=== PATIENT | female | born 1985 | race American Indian/Alaskan Native ===

== ENCOUNTER 2018-04-16 22:19 | Outpatient (CLI) | payer MEDICAID ==
[2018-04-16] MEDS ORDERED: LACTATED RINGERS 500 ML IV ONE (22:36)
[2018-04-16 23:45] LABS: Bilirubin,Urine NEG (Negative); Blood,Urine NEG (Negative); Color,Urine Straw (Yellow); Protein,Urine <15 mg/dL mg/dL (Negative); RBC,Urine < 1.0 /HPF (0.0-6.0); Urobilinogen,Urine < 2.0 mg/dL (<2.0); WBC,Urine < 1.0 /HPF (0.0-6.0)
[2018-04-17 00:09] VITALS: BP 108/69
== END 2018-04-17 00:21 | disposition home or self-care (01) ==
LOC: TRG 22:19
PROVIDERS: ATTEND Obstetrics & Gynecology
DX: O26.893 Other specified pregnancy related conditions, third trimester (principal); R10.30 Lower abdominal pain, unspecified; R07.9 Chest pain, unspecified; Z3A.35 35 weeks gestation of pregnancy
CPT/HCPCS: 59025; 81001; 93005; 93010

== ENCOUNTER 2018-05-09 05:44 | Inpatient (IN) | payer MEDICAID ==
[2018-05-09] MEDS ORDERED: REGLAN IV ONE (06:24)
[2018-05-09] MEDS ORDERED: PEPCID IV ONE (06:24)
[2018-05-09] MEDS ORDERED: BICITRA PO ONE (06:24)
[2018-05-09 07:00] LABS: Hematocrit 29.2 % (30.3-42.9); Hemoglobin 9.2 gm/dl (10.1-14.3); Mean Corpuscular HGB Conc 31 % (30-34); Red Blood Count 4.47 M/mm3 (3.65-5.03)
[2018-05-09] MEDS ORDERED: ANCEF/STERILE WATER 2 GM/20 ML 2 GM/20 ML SYRINGE IV NR (07:00)
[2018-05-09] MEDS ORDERED: PITOCin/NS 20 UNIT/1000ML DRIP 20 UNITS/1,000 ML BAG IV SCH ×2 (07:00→11:00)
[2018-05-09] MEDS ORDERED: LACTATED RINGERS 1,000 ML IV SCH (07:00)
[2018-05-09 07:02] LABS: Mean Corpuscular Volume 65 fl (79-97); Platelet Count 223 K/mm3 (140-440); Red Cell Distribution Width 21.7 % (13.2-15.2)
--- NOTE | 2018-05-09 07:10 | Anesthesia Day of Surgery ---
Anesthesia Day of Surgery - Day of Surgery Patient Examined: Yes Patient H&P Reviewed: Yes Patient is NPO: Yes Beta Blockers: No
--- NOTE | 2018-05-09 07:10 | Anesthesia Consultation ---
Anesthesia Consult and Med Hx Date of service: 05/09/18 - Airway Anesthetic Teeth Evaluation: Good ROM Head & Neck: Adequate Mental/Hyoid Distance: Adequate Mallampati Class: Class II Intubation Access Assessment: Probably Good - Pulmonary Exam CTA: Yes - Cardiac Exam Cardiac Exam: RRR - Pre-Operative Health Status ASA Pre-Surgery Classification: ASA2 Proposed Anesthetic Plan: Spinal - Pulmonary Hx Smoking: No Hx Asthma: No - Cardiovascular System Hx Hypertension: No Hx Coronary Artery Disease: No - Central Nervous System Hx Seizures: No Hx Psychiatric Problems: Yes (anxiety) - Endocrine Hx Renal Disease: No Hx Hypothyroidism: No Hx Hyperthyroidism: No - Hematic Hx Anemia: Yes (Iron) Hx Sickle Cell Disease: No - Other Systems Hx Alcohol Use: No
[2018-05-09] MEDS ORDERED: PHENERGAN PR PRN (07:30)
[2018-05-09] MEDS ORDERED: NARCAN 0.4 MG/1 ML IV PRN ×2 (07:30→12:00)
[2018-05-09] MEDS ORDERED: SENSORCAINE/DEXTR 0.75-8.25% INFILTRATI ONE (07:38)
[2018-05-09] MEDS ORDERED: SUBLIMAZE ONE (07:38)
[2018-05-09] MEDS ORDERED: ZOFRAN IV PRN (08:00)
[2018-05-09] MEDS ORDERED: SODIUM CHLORIDE FLUSH SYRINGE 10 ML IV PRN ×2 (08:00→12:00)
[2018-05-09] MEDS ORDERED: PHENERGAN PO PRN (08:00)
[2018-05-09 08:36] LABS: Basophils % (Manual) 0 % (0.0-1.8); Myelocytes # (Manual) 0.2 K/mm3; Total Cells Counted 100
[2018-05-09 08:37] LABS: Anisocytosis 1+; Ovalocytes 1+; Platelet Estimate Consistent w Auto; Poikilocytosis 1+; Tear Drop Cells Few
--- NOTE | 2018-05-09 08:38 | History and Physical Report ---
History of Present Illness Date of examination: 05/09/18 Date of admission: 05/09/18 05:44 Chief complaint: Repeat C Section with BTL History of present illness: Pt is a 32yo BF EDC 05/16/18; EGA 39 0/7 weeks presents for Repeat C Section with BTL.. She received care at [facility] since 14 weeks and course was unremarkable except for previous C Section x 2. records are available and GBS is Negative. Past History Past Medical History: no pertinent history Past Surgical History: section (x2) Social history: no significant social history, - Obstetrical History Expected Date of Delivery: 05/16/18 Actual Gestation: 39 Week(s) 0 Day(s) : 3 Medications and Allergies Allergies Allergy/AdvReac Type Severity Reaction Status Date / Time No Known Allergies Allergy Verified 05/09/18 06:26 Home Medications Medication Instructions Recorded Confirmed Last Taken Type Ferrous Sulfate [Iron] 1 tab PO DAILY 03/15/18 04/16/18 04/16/18 History Active Meds: Active Medications Cefazolin Sodium (Ancef/Sterile Water 2 Gm/20 Ml) 2 gm in 20 mls @ 80 mls/hr IV PREOP NR; Protocol Stop: 05/09/18 18:00 Lactated Ringer's (Lactated Ringers) 1,000 mls @ 2,250 mls/hr IV PREOP ANA MARIA Stop: 05/10/18 07:27 Last Admin: 05/09/18 06:28 Dose: 2,250 mls/hr Documented by: Oxytocin/Sodium Chloride (Pitocin/Ns 20 Unit/1000ml Drip) 20 units in 1,000 mls @ 0 mls/hr IV TITR ANA MARIA Naloxone HCl (Narcan 0.4 Mg/1 Ml) 0.2 mg IV Q2MIN PRN PRN Reason: Res Rate </= 8 or 02 SAT < 92% Ondansetron HCl (Zofran) 4 mg IV Q8H PRN PRN Reason: Nausea And Vomiting Promethazine HCl (Phenergan) 25 mg PO Q6H PRN PRN Reason: Nausea And Vomiting Promethazine HCl (Phenergan) 25 mg WV Q6H PRN PRN Reason: Nausea And Vomiting Sodium Chloride (Sodium Chloride Flush Syringe 10 Ml) 10 ml IV PRN PRN PRN Reason: flush Review of Systems All systems: negative - Vital Signs Vital signs: Vital Signs Temp Pulse Resp BP 98.5 F 95 H 16 124/63 05/09/18 07:30 05/09/18 07:30 05/09/18 07:30 05/09/18 07:30 Temp Pulse Resp BP Pulse Ox 98.5 F 95 H 16 124/63 05/09/18 07:30 05/09/18 07:32 05/09/18 07:30 05/09/18 07:32 - Physical Exam Breasts: Positive: deferred Cardiovascular: Regular rate Lungs: Positive: Clear to auscultation Abdomen: Positive: normal appearance Genitourinary (Female): Positive: normal external genitalia Uterus: Positive: enlarged Extremities: Positive: normal - Obstetrical FHR: category 1 Uterine Contraction Monitor Mode: External Uterine Contraction Pattern: Absent Results Result Diagrams: 05/09/18 06:46 Abnormal lab results 05/09/18 Range/Units 06:46 Hgb 9.2 L (10.1-14.3) gm/dl Hct 29.2 L (30.3-42.9) % MCV 65 L (79-97) fl MCH 21 L (28-32) pg RDW 21.7 H (13.2-15.2) % All other labs normal. Assessment and Plan - Patient Problems (1) 39 weeks gestation of Onset Date: 05/09/18 Current Visit: Yes Status: Acute Plan to address problem: A: IUP @ 39 0/7 weeks Previous C Section x 2 Desires permanent sterilization P: Admit to L&D for a Repeat C Section with BTL (2) Previous section Onset Date: 05/09/18 Current Visit: Yes Status: Acute
[2018-05-09] MEDS ORDERED: NACL 0.9% IR ONE (09:05)
[2018-05-09] MEDS ORDERED: WATER FOR IRRIG STERILE IR ONE (09:05)
[2018-05-09] MEDS ORDERED: NACL 0.9% 1000 ML 1,000 ML ONE (09:40)
[2018-05-09] MEDS ORDERED: XYLOCAINE MPF 2% ONE (09:40)
[2018-05-09] MEDS ORDERED: NEO SYNEPHRINE/NS Syringe(OR USE) IV ONE (09:40)
--- NOTE | 2018-05-09 10:18 | Operative Report ---
Operative Report Operative Report: Date of procedure: 05/09/2018 Pre-operative diagnosis: 1. Intrauterine at 39 0/7 weeks 2. Previ ous 2 3. Desires permanent sterilization Post-operative diagnosis: Same with extensive lower uterine segment adhesions Procedure name(s): 1. Repeat low transverse section 2. Bilateral tubal ligation Surgeon: Liban Garcia MD Slope Tender: None Anesthesia: Spinal anesthesia by the [place] EBL: 750 mls Findings: A 3617 g male infant Apgars 8 at 1 minute 9 at 5 minutes. Clear amniotic fluid. Normal uterus with extensive lower uterine segment adhesions. Normal tubes and ovaries bilaterally. Procedure: After the patient was prepped and draped in usual sterile fashion, and after satisfactory level of epidural anesthesia was obtained, the skin knife was used to make a transverse skin incision through the previous skin scar. The incision was excised down to layer of the fascia, which was nicked in the midline and extended laterally using the Bovie cautery. The rectus muscles were dissected off the rectus fascia both superiorly and inferiorly. The rectus be llies in the midline, and the peritoneum was entered under direct visualization. The peritoneal incision was extended superiorly and inferiorly. There were extensive lower uterine segment adhesions which were taken down using both sharp and blunt dissection. A bladder flap was created and the bladder blade was then placed. The uterus was scored in a curvilinear linear fashion, entered in the midline revealing clear amniotic fluid. The infant's head was delivered onto the surgical field with the aid of a vacuum, and the oropharynx and nasopharynx were bulb suctioned. The rest of the infant's body was delivered, cord was doubly clamped and cut and the was handed to the waiting respiratory team. Cord blood was then obtained. The placenta was manually removed from the uterus, and the uterus removed from its normal anatomical position. After gentle uterine lavage, the incision was inspected and found to be without extensions. It was then closed in 2 layers using 0 Vicryl suture in a running interlocking fashion, the second layer imbricating the first. After good hemostasis was achieved, copious amounts or irrigation was performed, and the gutters were suctioned free of blood and blood clots. Attention was then turned to the tubal ligation. First the right fallopian tube was grasped using [place], and the [place]ie clip was applied to the proximal portion of the tube. Next the left fallopian tube was grasped using a [place], and a [place] clip was applied to the proximal portion of the tube. The Tisseel sealant was sprayed across the uterine incision. The uterus was then returned to its normal anatomical position, and after excellent hemostasis assured, the peritoneum was re-approximated using 3-0 Vicryl suture in a running interlocking fashion, and then the rectus muscles were re-approximated using 3-0 Vicryl suture in a [id number] configuration. The fascia was then re-approximated using 0 Vicryl suture in running interlocking fashion. The subcutaneous layer was made hemostatic using Bovie cautery, the Tisseel sealant was sprayed across the fascial incision and the skin edges re-approximated using 4-0 Vicryl suture in a sub-cuticular fashion. Patient tolerated the procedure well was transported to recovery in stable condition.
[2018-05-09] MEDS ORDERED: TUCKS PAD TP PRN (12:00)
[2018-05-09] MEDS ORDERED: TYLENOL PO PRN (12:00)
[2018-05-09] MEDS ORDERED: D5LR 1,000 ML IV SCH (12:00)
[2018-05-09] MEDS ORDERED: TORADOL IV PRN (12:00)
[2018-05-09] MEDS ORDERED: MYLICON PO PRN (12:00)
[2018-05-09] MEDS ORDERED: LANSINOH TP PRN (12:00)
[2018-05-09] MEDS: METHERGINE PO SCH ×2 (12:40→19:50)
[2018-05-09] MEDS: DILAUDID IV PRN ×2 (15:15→15:20)
[2018-05-09] MEDS: PERCOCET 5/325 PO PRN (17:10)
[2018-05-09] MEDS: ANCEF/NS 1 GM/50 ML 1 GM/50 ML BAG IV SCH (17:14)
--- NOTE | 2018-05-09 20:04 | Post Anesthesia Evaluation ---
- Post Anesthesia Evaluation Patient Participated: Yes Airway Patent: Yes Stable Respiratory Function: Yes Nausea/Vomiting: No Temp > 96.8F: Yes Pain Manageable: Yes Adequeate Hydration: Yes Anesthesia Complications: No Block Receding Appropriately: Yes Patient on Ventilator: No
[2018-05-09] MEDS ORDERED: MILK OF MAGNESIA PO PRN (22:00)
[2018-05-09] MEDS ORDERED: SENOKOT PO PRN (22:00)
[2018-05-10] MEDS: IBUPROFEN PO PRN ×3 (00:15→17:25)
[2018-05-10] MEDS: NORCO 5/325 PO PRN ×2 (00:16→18:10)
[2018-05-10] MEDS: ANCEF/NS 1 GM/50 ML 1 GM/50 ML BAG IV SCH (00:17)
[2018-05-10 00:58] LABS: Hematocrit 21.8 % (30.3-42.9); Hemoglobin 6.8 gm/dl (10.1-14.3)
[2018-05-10] MEDS: PERCOCET 5/325 PO PRN ×2 (04:37→10:25)
[2018-05-10] MEDS: METHERGINE PO SCH ×3 (04:37→18:09)
[2018-05-10] MEDS ORDERED: BOOSTRIX IM ONE (06:00)
--- NOTE | 2018-05-10 08:58 | Progress Note ---
Assessment and Plan - Patient Problems (1) 39 weeks gestation of Onset Date: 05/09/18 Current Visit: Yes Status: Resolved (2) Previous section Onset Date: 05/09/18 Current Visit: Yes Status: Resolved (3) Status post section Onset Date: 05/10/18 Current Visit: Yes Status: Resolved Plan to address problem: A: S/P Repeat C Section with BTL - POD #1 Doing well Acute blood loss anemia - stable Asymptomatic anemia - stable P: Continue RPOC Anticipate discharge in 24-48hrs Repeat H/H today. (4) Acute blood loss anemia Onset Date: 05/10/18 Current Visit: Yes Status: Resolved Subjective - Subjective Date of service: 05/10/18 Principal diagnosis: s/p C Section with BTL - POD #1 Interval history: Pt is a 32yo BF EDC 05/16/18; EGA 39 0/7 weeks presents for Repeat C Section with BTL.. She received care at [facility] since 14 weeks and course was unremarkable except for previous C Section x 2. records are available and GBS is Negative. Patient reports: appetite normal, voiding normally, pain well controlled, ambulating normally, no flatus, no nauseated : doing well, nursing well Objective - Vital Signs Latest vital signs: Vital Signs Temp Pulse Resp BP BP Pulse Ox 05/10/18 01:00 98.0 F 99 H 18 109/63 05/09/18 20:00 98.2 F 101 H 18 113/76 05/09/18 17:33 98.4 F 95 H 18 116/73 98 05/09/18 11:45 99.6 F 117 H 23 119/75 99 05/09/18 11:20 71 117/66 05/09/18 11:15 98.4 F 87 20 129/93 100 05/09/18 11:03 75 113/62 05/09/18 11:00 79 25 H 133/88 100 05/09/18 10:49 66 105/57 05/09/18 10:45 93 H 20 118/73 100 05/09/18 10:33 74 124/59 05/09/18 10:30 81 25 H 115/78 100 05/09/18 10:25 86 20 112/71 100 05/09/18 10:19 97.7 F 94 H 20 117/59 100 05/09/18 10:03 58 L 113/66 05/09/18 09:49 54 L 121/73 05/09/18 09:33 60 107/68 05/09/18 09:14 38 L 108/59 Intake and Output 05/09/18 05/10/18 05/10/18 22:59 06:59 14:59 Intake Total 50 Output Total 1100 1250 Balance -1050 -1250 Intake: IV 50 ANCEF/NS 1 GM/50 ML 1 gm 50 In 50 ml @ 100 mls/hr IV Q8H [facility] Rx#:[id number] Output: Urine 1100 1250 Indwelling Catheter 600 Void 500 1250 Other: Total, Output Amount 500 350 - Exam Breasts: Present: deferred Abdomen: Present: normal appearance, soft Uterus: Present: normal, firm, fundal height below umbilicus Extremities: Present: normal Incision: Present: normal, dry, intact, dressed - Labs Labs: Abnormal lab results 05/09/18 Range/Units 22:29 Hgb 6.8 L (10.1-14.3) gm/dl Hct 21.8 L D (30.3-42.9) % Laboratory Tests 05/09/18 05/09/18 05/09/18 06:46 06:46 22:29 WBC 5.9 RBC 4.47 Hgb 9.2 L 6.8 L Hct 29.2 L 21.8 L D MCV 65 L MCH 21 L MCHC 31 RDW 21.7 H Plt Count 223 Add Manual Diff Complete Total Counted 100 Seg Neuts % (Manual) 59.0 Band Neutrophils % 0 Lymphocytes % (Manual) 30.0 Reactive Lymphs % (Man) 0 Monocytes % (Manual) 6.0 Eosinophils % (Manual) 2.0 Basophils % (Manual) 0 Metamyelocytes % 0 Myelocytes % 3.0 Promyelocytes % 0 Blast Cells % 0 Nucleated RBC % Not Reportable Seg Neutrophils # Man 3.5 Band Neutrophils # 0.0 Lymphocytes # (Manual) 1.8 Abs React Lymphs (Man) 0.0 Monocytes # (Manual) 0.4 Eosinophils # (Manual) 0.1 Basophils # (Manual) 0.0 Metamyelocytes # 0.0 Myelocytes # 0.2 Promyelocytes # 0.0 Blast Cells # 0.0 WBC Morphology Not Reportable Hypersegmented Neuts Not Reportable Hyposegmented Neuts Not Reportable Hypogranular Neuts Not Reportable Smudge Cells Not Reportable Toxic Granulation Not Reportable Toxic Vacuolation Not Reportable Dohle Bodies Not Reportable Pelger-Huet Anomaly Not Reportable Erik Rods Not Reportable Platelet Estimate Consistent w auto Clumped Platelets Not Reportable Plt Clumps, EDTA Not Reportable Large Platelets Not Reportable Giant Platelets Not Reportable Platelet Satelliting Not Reportable Plt Morphology Comment Not Reportable RBC Morphology Not Reportable Dimorphic RBCs Not Reportable Polychromasia Not Reportable Hypochromasia Not Reportable Poikilocytosis 1+ Anisocytosis 1+ Microcytosis Not Reportable Macrocytosis Not Reportable Spherocytes Not Reportable Pappenheimer Bodies Not Reportable Sickle Cells Not Reportable Target Cells Not Reportable Tear Drop Cells Few Ovalocytes 1+ Helmet Cells Not Reportable Plasencia-[place] Bodies Not Reportable Rosenberg Rings Not Reportable Trey Cells Not Reportable Bite Cells Not Reportable Crenated Cell Not Reportable Elliptocytes Few Acanthocytes (Spur) Not Reportable Rouleaux Not Reportable Hemoglobin C Crystals Not Reportable Schistocytes Not Reportable Malaria parasites Not Reportable Ja Bodies Not Reportable Hem Pathologist Commnt No Blood Type O POSITIVE Antibody Screen Negative
[2018-05-10] MEDS: PRENATAL VITAMIN PO SCH (09:27)
[2018-05-10] MEDS: FEOSOL PO SCH (09:27)
[2018-05-10 10:37] LABS: Hemoglobin 6.3 gm/dl (10.1-14.3)
[2018-05-10] MEDS ORDERED: M-M-R II VACCINE SUB-Q ONE (11:00)
[2018-05-10] MEDS: CLARITIN PO SCH (21:30)
[2018-05-11] MEDS ORDERED: METHERGINE PO SCH (02:00)
[2018-05-11] MEDS: IBUPROFEN PO PRN ×2 (05:40→11:20)
--- NOTE | 2018-05-11 09:52 | Progress Note ---
Assessment and Plan - Patient Problems (1) 39 weeks gestation of Onset Date: 05/09/18 Current Visit: Yes Status: Resolved (2) Previous section Onset Date: 05/09/18 Current Visit: Yes Status: Resolved (3) Status post section Onset Date: 05/10/18 Current Visit: Yes Status: Resolved Plan to address problem: A: S/P Repeat C Section with BTL - POD #2 Doing well Acute blood loss anemia - stable Asymptomatic anemia - stable P: May go home today. (4) Acute blood loss anemia Onset Date: 05/10/18 Current Visit: Yes Status: Resolved Subjective - Subjective Date of service: 05/11/18 Principal diagnosis: s/p C Section with BTL - POD #2 Interval history: Pt is feeling well without complaints. She is tolerating a reg diet without nausea or vomiting, ambulating and voiding without difficulty. Patient reports: appetite normal, voiding normally, pain well controlled, flatus, ambulating normally, no dizzy ambulation, no nauseated [place]: doing well, bottle feeding Objective - Vital Signs Latest vital signs: Vital Signs Temp Pulse Resp BP BP Pulse Ox 05/11/18 05:40 20 05/11/18 00:30 99.0 F 109 H 20 106/64 05/10/18 17:08 98.6 F 107 H 18 108/71 99 05/10/18 16:15 98.3 F 100 H 20 120/78 98 Intake and Output 05/10/18 05/11/18 05/11/18 22:59 06:59 14:59 Intake Total 360 Balance 360 Intake: Oral 360 Other: Total, Intake Amount 360 # Voids Void 1 - Exam Abdomen: Present: normal appearance, soft Uterus: Present: normal, firm, fundal height below umbilicus Extremities: Present: normal Incision: Present: normal, dry, intact - Labs Labs: Abnormal lab results 05/10/18 Range/Units 10:06 Hgb 6.3 L (10.1-14.3) gm/dl Hct 20.0 L (30.3-42.9) %
[2018-05-11] MEDS: CLARITIN PO SCH (11:21)
[2018-05-11] MEDS: PRENATAL VITAMIN PO SCH (11:21)
[2018-05-11] MEDS: FEOSOL PO SCH (11:22)
--- NOTE | 2018-05-11 12:42 | Discharge Summary ---
Providers - Providers Date of Admission: 05/09/18 05:44 Date of discharge: 05/11/18 Attending physician: ROSLYN MOREJON Primary care physician: ROSLYN MOREJON Hospitalization Reason for admission: section, IUP at term Delivery: Procedure: section, bilateral tubal ligation, repeat low transverse Episiotomy: none Laceration: none Incision: normal, dry, intact Other procedures: tubal ligation complications: none Discharge diagnosis: IUP at term delivered [place] baby: male Hospital course: Pt is a 32yo BF EDC 05/16/18; EGA 39 0/7 weeks who presented for a Repeat C Section with BTL.. She underwent an uncomplicated Repeat C Section with BTL and tolerated the procedure well. By POD #2 she was tolerating a reg diet without nausea or vomiting, ambulating and voiding without difficulty. She will therefore be discharged to home today in stable condition. Condition at discharge: Good Disposition: DC-01 TO HOME OR SELFCARE - Discharge Diagnoses (1) 39 weeks gestation of Status: Resolved (2) Previous section Status: Resolved (3) Status post section Status: Resolved (4) Acute blood loss anemia Status: Resolved Plan - Discharge Medications Prescriptions: Ferrous Sulfate [Feosol 325 MG tab] 325 mg PO BID #60 tablet Ibuprofen [Motrin 800 MG tab] 800 mg PO Q6H PRN #30 tablet PRN Reason: Pain, Mild (1-3) HYDROcodone/APAP 5-325 [[place] 5-325 mg TAB] 1 each PO Q6HR PRN #30 tablet PRN Reason: Pain, Moderate (4-6) Vit-Fe Fumar-FA [ Vitamin] 1 each PO QDAY #30 tablet - Provider Discharge Summary Activity: routine, no sex for 6 weeks, no heavy lifting 4 weeks, no strenuous exercise Diet: routine Instructions: routine Additional instructions: [] Smoking cessation referral if applicable(refer to patient education folder for contact #) [] Refer to [facility] Booklet Call your doctor immediately for: * Fever > 100.5 * Heavy vaginal bleeding ( >1 pad per hour) * Severe persistent headache * Shortness of breath * Reddened, hot, painful area to leg or breast * Drainage or odor from incision. * Keep incision clean and dry at all times and follow doctor's instructions regarding bathing/showering - Follow up plan Follow up: ROSLYN MOREJON MD [Primary Care Provider] - 14 Days DIONICIO JIMÉNEZ NP [Referring] - 14 Days
[2018-05-11 17:25] VITALS: BP 111/70
== END 2018-05-11 18:00 | disposition home or self-care (01) | DRG 765 ==
LOC: APU 05:44 → OB 11:29
PROVIDERS: ADMIT Obstetrics & Gynecology; ATTEND Obstetrics & Gynecology
PROC: 10D00Z1 Extraction of Products of Conception, Low, Open Approach (ICD-10-PCS; principal; 2018-05-09)
PROC: 0UL70CZ Occlusion of Bilateral Fallopian Tubes with Extraluminal Device, Open Approach (ICD-10-PCS; 2018-05-09)
PROC: 0UN90ZZ Release Uterus, Open Approach (ICD-10-PCS; 2018-05-09)
PROC: 3E0234Z Introduction of Serum, Toxoid and Vaccine into Muscle, Percutaneous Approach (ICD-10-PCS; 2018-05-10)
DX: O34.211 Maternal care for low transverse scar from previous cesarean delivery (principal); D62 Acute posthemorrhagic anemia; O99.344 Other mental disorders complicating childbirth; F41.9 Anxiety disorder, unspecified; O99.02 Anemia complicating childbirth; O99.89 Other specified diseases and conditions complicating pregnancy, childbirth and the puerperium; N73.6 Female pelvic peritoneal adhesions (postinfective); Z3A.39 39 weeks gestation of pregnancy; Z37.0 Single live birth; Z23 Encounter for immunization
CPT/HCPCS: 36415; 85007; 85014; 85018; 85025; 86850; 86900; 86901; 90471; 90715; G0378; A6250; C9250; J0690; J1170; J1885; J2370; J2405; J2590; J2765; J3010; J7030; J7120; J7121

== ENCOUNTER 2018-08-02 08:00 | Emergency (ER) | payer MEDICAID, OTHER ==
[2018-08-02 08:18] VITALS: BP 109/76
--- NOTE | 2018-08-02 09:43 | Emergency Department Report ---
- General Chief Complaint: Wound/Laceration Stated Complaint: C SECTION WOUND OPEN/PAIN Time Seen by Provider: 08/02/18 09:12 Source: patient Mode of arrival: Ambulatory Limitations: No Limitations - History of Present Illness Initial Comments: Patient is a 33-year-old female who is 3 months who states that her scar started bleeding 2 days ago. Patient states she had all of her visits. Patient's states 2 days ago there was some mild pain in the center portion of her scar is systems light bleeding. She is continuing to have some pain that she states is aching in nature and 5 out of 10 in severity. She denies fevers chills nausea vomiting. - Related Data Home Medications Medication Instructions Recorded Confirmed Last Taken Ferrous Sulfate [Iron] 1 tab PO DAILY 03/15/18 05/09/18 05/08/18 Previous Rx's Medication Instructions Recorded Last Taken Type Ferrous Sulfate [Feosol 325 MG tab] 325 mg PO BID #60 tablet 05/11/18 Unknown Rx HYDROcodone/APAP 5-325 [[place] 1 each PO Q6HR PRN #30 tablet 05/11/18 Unknown Rx 5-325 mg TAB] Ibuprofen [Motrin 800 MG tab] 800 mg PO Q6H PRN #30 tablet 05/11/18 Unknown Rx Vit-Fe Fumar-FA [ 1 each PO QDAY #30 tablet 05/11/18 Unknown Rx Vitamin] Clindamycin [Clindamycin CAP] 300 mg PO Q8H #21 cap 08/02/18 Unknown Rx Ibuprofen [Motrin 600 MG tab] 600 mg PO Q8H PRN #20 tablet 08/02/18 Unknown Rx traMADol [Ultram] 50 mg PO Q6HR PRN #12 tablet 08/02/18 Unknown Rx Allergies Allergy/AdvReac Type Severity Reaction Status Date / Time No Known Allergies Allergy Verified 08/02/18 08:01 ED Review of Systems ROS: Stated complaint: C SECTION WOUND OPEN/PAIN Other details as noted in HPI Comment: All other systems reviewed and negative ED Past Medical Hx - Past Medical History Hx Hypertension: No Hx Congestive Heart Failure: No Hx Diabetes: No Hx Deep Vein Thrombosis: No Hx Renal Disease: No Hx Sickle Cell Disease: No Hx Seizures: No Hx Asthma: No Hx COPD: No Hx HIV: No - Social History Smoking Status: Never Smoker Substance Use Type: None - Medications Home Medications: Home Medications Medication Instructions Recorded Confirmed Last Taken Type Ferrous Sulfate [Iron] 1 tab PO DAILY 03/15/18 05/09/18 05/08/18 History Ferrous Sulfate [Feosol 325 MG tab] 325 mg PO BID #60 tablet 05/11/18 Unknown Rx HYDROcodone/APAP 5-325 [[place] 1 each PO Q6HR PRN #30 tablet 05/11/18 Unknown Rx 5-325 mg TAB] Ibuprofen [Motrin 800 MG tab] 800 mg PO Q6H PRN #30 tablet 05/11/18 Unknown Rx Vit-Fe Fumar-FA [ 1 each PO QDAY #30 tablet 05/11/18 Unknown Rx Vitamin] Clindamycin [Clindamycin CAP] 300 mg PO Q8H #21 cap 08/02/18 Unknown Rx Ibuprofen [Motrin 600 MG tab] 600 mg PO Q8H PRN #20 tablet 08/02/18 Unknown Rx traMADol [Ultram] 50 mg PO Q6HR PRN #12 tablet 08/02/18 Unknown Rx ED Physical Exam - General Limitations: No Limitations General appearance: alert, in no apparent distress - Head Head exam: Present: atraumatic, normocephalic - Eye Eye exam: Present: normal appearance - ENT ENT exam: Present: mucous membranes moist - Neck Neck exam: Present: normal inspection - Respiratory Respiratory exam: Present: normal lung sounds bilaterally. Absent: respiratory distress - Cardiovascular Cardiovascular Exam: Present: regular rate, normal rhythm. Absent: systolic murmur, diastolic murmur, rubs, gallop - GI/Abdominal GI/Abdominal exam: Present: soft, normal bowel sounds - Extremities Exam Extremities exam: Present: normal inspection - Back Exam Back exam: Present: normal inspection - Neurological Exam Neurological exam: Present: alert, oriented X3 - Psychiatric Psychiatric exam: Present: normal affect, normal mood - Skin Skin exam: Present: warm, dry, intact, normal color, other (she has a horizontal suprapubic wound consistent with a scar. In the center portion there is a small area of wound dehiscence with some surface purulence. There is some mild tenderness on palpation. Very mild erythema surrounding the open area.). Absent: rash ED Course Vital Signs 08/02/18 08:16 Temperature 98.2 F Pulse Rate 89 Respiratory 16 Rate Blood Pressure 109/76 O2 Sat by Pulse 100 Oximetry ED Medical Decision Making - Medical Decision Making Patient with a early wound infection and mild cellulitis associated with some wound dehiscence. Patient will be started on clindamycin and the patient be discharged home. Critical care attestation.: If time is entered above; I have spent that time in minutes in the direct care of this critically ill patient, excluding procedure time. ED Disposition Clinical Impression: Wound dehiscence, Wound infection Disposition: TO HOME OR SELFCARE Is pt being admited?: No Does the pt Need Aspirin: No Condition: Stable Instructions: Wound Dehiscence (ED), Cellulitis (ED) Referrals: GUSTAVO BOLAÑOS MD [Primary Care Provider] - 3-5 Days Time of Disposition: 09:43
== END 2018-08-02 09:51 | disposition home or self-care (01) ==
LOC: ED 08:00
DX: T81.30XA Disruption of wound, unspecified, initial encounter (principal); Y92.9 Unspecified place or not applicable
CPT/HCPCS: 99282

== ENCOUNTER 2018-12-29 11:10 | Emergency (ER) | payer SELFPAY ==
[2018-12-29 11:20] VITALS: BP 108/62
--- NOTE | 2018-12-29 13:45 | Emergency Department Report ---
ED General Adult HPI - General Chief complaint: Skin/Abscess/Foreign Body Stated complaint: C SECTION INCISION LEAKING Time Seen by Provider: 12/29/18 13:36 Source: patient Mode of arrival: Ambulatory Limitations: No Limitations - History of Present Illness Initial comments: states C section scar has been hurting and intermittently has drainage x 7 quan hs, since the surgery nothing different today but states can't follow up with OB due to insurance no fevers or systemic complaints -: Gradual, month(s) (7) Location: abdomen Radiation: non-radiation Severity scale (0 -10): 3 Quality: aching Consistency: constant Improves with: none Worsens with: none Associated Symptoms: denies other symptoms Treatments Prior to Arrival: none - Related Data Home Medications Medication Instructions Recorded Confirmed Last Taken Ferrous Sulfate [Iron] 1 tab PO DAILY 03/15/18 05/09/18 05/08/18 Previous Rx's Medication Instructions Recorded Last Taken Type Ferrous Sulfate [Feosol 325 MG tab] 325 mg PO BID #60 tablet 05/11/18 Unknown Rx HYDROcodone/APAP 5-325 [[place]ushing 1 each PO Q6HR PRN #30 tablet 05/11/18 Unknown Rx 5-325 mg TAB] Ibuprofen [Motrin 800 MG tab] 800 mg PO Q6H PRN #30 tablet 05/11/18 Unknown Rx Vit-Fe Fumar-FA [ 1 each PO QDAY #30 tablet 05/11/18 Unknown Rx Vitamin] Clindamycin [Clindamycin CAP] 300 mg PO Q8H #21 cap 08/02/18 Unknown Rx Ibuprofen [Motrin 600 MG tab] 600 mg PO Q8H PRN #20 tablet 08/02/18 Unknown Rx traMADol [Ultram] 50 mg PO Q6HR PRN #12 tablet 08/02/18 Unknown Rx Allergies Allergy/AdvReac Type Severity Reaction Status Date / Time No Known Allergies Allergy Verified 08/02/18 08:01 ED Review of Systems ROS: Stated complaint: C SECTION INCISION LEAKING Other details as noted in HPI Comment: All other systems reviewed and negative Skin: as per HPI ED Past Medical Hx - Past Medical History Previous Medical History?: No Hx Hypertension: No Hx Congestive Heart Failure: No Hx Diabetes: No Hx Deep Vein Thrombosis: No Hx Renal Disease: No Hx Sickle Cell Disease: No Hx Seizures: No Hx Asthma: No Hx COPD: No Hx HIV: No - Surgical History Past Surgical History?: Yes Additional Surgical History: C section - Social History Smoking Status: Never Smoker Substance Use Type: None - Medications Home Medications: Home Medications Medication Instructions Recorded Confirmed Last Taken Type Ferrous Sulfate [Iron] 1 tab PO DAILY 03/15/18 05/09/18 05/08/18 History Ferrous Sulfate [Feosol 325 MG tab] 325 mg PO BID #60 tablet 05/11/18 Unknown Rx HYDROcodone/APAP 5-325 [[place]ushing 1 each PO Q6HR PRN #30 tablet 05/11/18 Unknown Rx 5-325 mg TAB] Ibuprofen [Motrin 800 MG tab] 800 mg PO Q6H PRN #30 tablet 05/11/18 Unknown Rx Vit-Fe Fumar-FA [ 1 each PO QDAY #30 tablet 05/11/18 Unknown Rx Vitamin] Clindamycin [Clindamycin CAP] 300 mg PO Q8H #21 cap 08/02/18 Unknown Rx Ibuprofen [Motrin 600 MG tab] 600 mg PO Q8H PRN #20 tablet 08/02/18 Unknown Rx traMADol [Ultram] 50 mg PO Q6HR PRN #12 tablet 08/02/18 Unknown Rx ED Physical Exam - General Limitations: No Limitations General appearance: alert, in no apparent distress - Head Head exam: Present: atraumatic, normocephalic - Eye Eye exam: Present: normal appearance - ENT ENT exam: Present: mucous membranes moist - Neck Neck exam: Present: normal inspection - Respiratory Respiratory exam: Absent: respiratory distress - GI/Abdominal GI/Abdominal exam: Present: soft, normal bowel sounds, other (C section incision with small (3 mm) area of skin breakdown centrally, without bleeding or drainage, no erythema, incision otherwise well healed). Absent: distended, tenderness, guarding, rebound - Extremities Exam Extremities exam: Present: normal inspection - Back Exam Back exam: Present: normal inspection - Neurological Exam Neurological exam: Present: alert, oriented X3 - Psychiatric Psychiatric exam: Present: normal affect, normal mood - Skin Skin exam: Present: warm, dry, intact, normal color. Absent: rash ED Course Vital Signs 12/29/18 11:19 Temperature 98.3 F Pulse Rate 75 Respiratory 18 Rate Blood Pressure 108/62 [Left] O2 Sat by Pulse 100 Oximetry ED Medical Decision Making - Medical Decision Making C section incision pain and intermittent drainage x 7 months since surgery nothing different today and exam is benign advised on supportive care; advised that she needs to follow up w/ Dr. Garcia for further concerns as this is a chronic issue no indication for further workup today - Differential Diagnosis cellulitis, abscess, chronic pain Critical care attestation.: If time is entered above; I have spent that time in minutes in the direct care of this critically ill patient, excluding procedure time. ED Disposition Clinical Impression: Visit for wound check Disposition: TO HOME OR SELFCARE Is pt being admited?: No Condition: Good Instructions: Chronic Wound Care (ED) Referrals: ROSLYN GARCIA MD [Staff Physician] - 3-5 Days PRIMARY CARE, [Primary Care Provider] - 3-5 Days Time of Disposition: 13:45
== END 2018-12-29 13:51 | disposition home or self-care (01) ==
LOC: ED 11:10
DX: G89.18 Other acute postprocedural pain (principal)